=== PATIENT | male | born 1990 | race Caucasian/White ===

== ENCOUNTER 2022-08-01 21:43 | Emergency (ER) | payer SELFPAY ==
[~2022-08-01] VITALS: Ht 185.4 cm; Wt 90.7 kg
[2022-08-01 22:44] VITALS: BP 135/78
--- NOTE | 2022-08-01 22:55 | NUR ---
[employer]IL[employer] MECHANIC AT PT'S BEDSIDE
[2022-08-01] MEDS ORDERED: ACETAMINOPHEN ES 500 MG TABLET ONE (22:59)
[2022-08-01] MEDS ORDERED: ACETAMINOPHEN 325 MG TABLET PO ONE (23:00)
[2022-08-01] MEDS ORDERED: IBUP-1955 PO (23:30)
== END 2022-08-01 23:41 | disposition home or self-care (01) ==
LOC: ER 21:54
DX: S60.221A Contusion of right hand, initial encounter (principal); Z60.2 Problems related to living alone; Z79.1 Long term (current) use of non-steroidal anti-inflammatories (NSAID); X50.9XXA Other and unspecified overexertion or strenuous movements or postures, initial encounter; Y93.89 Activity, other specified; Y92.89 Other specified places as the place of occurrence of the external cause; Y99.8 Other external cause status
CPT/HCPCS: 73130-TC